=== PATIENT | male | born 1960 ===

== ENCOUNTER 2016-12-26 01:37 | Emergency (ER) | payer OTHER ==
[~2016-12-26] VITALS: Ht 180.3 cm; Wt 87.5 kg
--- NOTE | 2016-12-26 02:13 | ED GI/GU/ABDOMINAL COMPLAINT ---
History of Present Illness General Chief Complaint: Abdominal Pain/Flank Pain Stated Complaint: "PER PT ABD PAIN FOR 2HRS" Source: patient, family, old records Exam Limitations: no limitations Vital Signs & Intake/Output Vital Signs & Intake/Output Vital Signs Date Time Temp Pulse Resp B/P B/P Pulse O2 O2 Flow FiO2 Mean Ox Delivery Rate 12/26 0144 97.7 65 16 159/102 97 Room Air Room Air Allergies Coded Allergies: No Known Allergies (12/26/16) Reconcile Medications Labetalol HCl 200 MG TABLET 200 MG PO DAILY HEART (Reported) Triage Note: 56yo MALE TO TRIAGE W/CO L FLANK PAIN X 2 H. STATES IT AWOKE HIM TONITE. ALSO STATES HX OF KIDNEY STONES. Triage Nurses Notes Reviewed? yes Onset: Just prior to arrival Duration: hour(s):, constant, continues in ED, getting worse Timing: recent history Quality/Severity: sharpness, severe Location: left flank Radiation: LLQ Activities at Onset: sleep Prior Abdominal Problems: similar symptoms Past Sexual History: Unobtainable at this time No Modifying Factors: none Associated Symptoms: abdominal pain, diaphoresis, nausea/vomiting HPI: Patient with history of kidney stone was awoken with sharp severe constant left flank pain radiating to left lower quadrant associated with nausea and diaphoresis. He denies fever chills chest pain cough shortness of breath dysuria rash bleeding headache. Past History Travel History Traveled to [place] past 21 day No Medical History Any Pertinent Medical History? see below for history Renal: KIDNEY STONES Surgical History Surgical History: non-contributory Psychosocial History What is your primary language Macedonian Tobacco Use: Never used Family History Hx Contributory? No Review of Systems Review of Systems Constitutional: Reports: no symptoms. EENTM: Reports: no symptoms. Respiratory: Reports: no symptoms. Cardiovascular: Reports: no symptoms. GI: Reports: see HPI, abdominal pain, nausea. Genitourinary: Reports: see HPI, pain. Musculoskeletal: Reports: no symptoms. Skin: Reports: no symptoms. Neurological/Psychological: Reports: no symptoms. Hematologic/Endocrine: Reports: no symptoms. Immunologic/Allergic: Reports: no symptoms. All Other Systems: Reviewed and Negative Physical Exam Physical Exam General Appearance: well developed/nourished, alert, awake, anxious, moderate distress, thin Head: atraumatic, normal appearance Eyes: Bilateral: normal appearance, PERRL, EOMI, normal inspection. Ears, Nose, Throat, Mouth: hearing grossly normal, moist mucous membrane Neck: normal inspection, supple, full range of motion, normal alignment Respiratory: normal breath sounds, chest non-tender, no respiratory distress, quiet respiration, lungs clear Cardiovascular: regular rate/rhythm, normal peripheral pulses, norml femoral pulses equa Peripheral Pulses: 4+ carotid (R), 4+ carotid (L) Gastrointestinal: normal bowel sounds, soft, non-tender, no organomegaly Male Genitals: normal genitalia Back: normal inspection, normal range of motion Extremities: normal range of motion, no ligament instability Neurologic/Psych: no motor/sensory deficits, awake, alert, oriented x 3, normal gait, normal mood/affect Skin: intact, normal color, warm/dry Core Measures ACS in differential dx? No Severe Sepsis Present: No Septic Shock Present: No Progress Differential Diagnosis: diverticulitis, gastritis, ureterolithiasis, UTI/pyelo Plan of Care: Orders Procedure Date/time Status URINALYSIS 12/26 212 Complete COMPREHENSIVE METABOLIC PANEL 12/26 212 Complete CBC WITHOUT DIFFERENTIAL 12/26 212 Complete Laboratory Tests 12/26/16 0238: Urinalysis LIGHT H, Urine Color YEL, Urine Clarity CLEAR, Urine pH 7.0, Ur Specific [place] 1.020, Urine Protein TRACE H, Urine Ketones NEG, Urine Nitrite NEG, Urine Bilirubin NEG, Urine Urobilinogen 0.2, Ur Leukocyte Esterase NEG, Ur Microscopic SEDIMENT EXAMINED, Urine Bacteria RARE H, Urine Mucus RARE, Urine Hemoglobin NEG, Urine Glucose NEG 12/26/16 0225: Anion Gap 12, Estimated GFR > 60, BUN/Creatinine Ratio 15.6, Glucose 117 H, Calcium 9.5, Total Bilirubin 0.6, AST 28, ALT 44, Alkaline Phosphatase 72, Total Protein 7.9, Albumin 4.4, Globulin 3.5, Albumin/Globulin Ratio 1.3, CBC w Diff NO MAN DIFF REQ, RBC 4.71, MCV 79.7 L, MCH 26.0 L, RDW 12.9, MPV 9.7, Gran % 60.5, Lymphocytes % 29.3, Monocytes % 6.9, Eosinophils % 2.7, Basophils % 0.6, Absolute Granulocytes 4.2, Absolute Lymphocytes 2.0, Absolute Monocytes 0.5, Absolute Eosinophils 0.2, Absolute Basophils 0, PUBS MCHC 32.6 L Diagnostic Imaging: Viewed by Me: CT Scan. Discussed w/RAD: CT Scan. Radiology Impression: 1. Mild left hydroureteronephrosis, likely secondary to a 3 mm calculus in the urinary bladder near the left ureterovesicular junction. 2. Few additional tiny renal calculi bilaterally. Initial ED EKG: none Departure Departure Time of Disposition: 603 Disposition: HOME OR SELF CARE Condition: Stable Clinical Impression Primary Impression: Renal colic on left side Referrals: UNKNOWN (PCP/Family) Departure Forms: Customer Survey General Discharge Information Prescriptions: Current Visit Scripts Ibuprofen 1 TAB PO Q6PRN PRN pain #50 TAB with food Oxycodone HCl/Acetaminophen (Percocet 5-325 MG Tablet) 1 TAB PO Q6P PRN severe pain #15 TAB Critical Care Note Critical Care Note Critical Care Time: 30-74 min (40)
[2016-12-26 02:32] LABS: ABSOLUTE BASOPHIL COUNT 0 /CUMM (0.0-0.2); ABSOLUTE EOSINOPHIL COUNT 0.2 /CUMM (0.0-0.7); ABSOLUTE GRANULOCYTE CT 4.2 /CUMM (1.4-6.5); ABSOLUTE MONOCYTE COUNT 0.5 /CUMM (0.10-0.60); BASOPHIL % 0.6 % (0.0-2.0); EOSINOPHIL % 2.7 % (0-5); GRANULOCYTE % 60.5 % (42.2-75.2); HEMATOCRIT 37.5 % (42-52); MEAN CORPUSCULAR HGB CONC 32.6 G/DL (33.0-37.0); MEAN CORPUSCULAR VOLUME 79.7 FL (80.0-94.0); MEAN PLATELET VOLUME 9.7 FL (7.4-10.4); PLATELET COUNT 194 /CUMM (130-400); RBC DISTRIBUTION WIDTH 12.9 % (11.5-14.5); RED BLOOD CELL CT 4.71 /CUMM (4.70-6.10); WHITE BLOOD CELL COUNT 6.9 /CUMM (4.8-10.8)
[2016-12-26] MEDS ORDERED: LABETALOL HCL200 M1 PO (03:29)
--- NOTE | 2016-12-26 05:47 | CT SCAN REPORT ---
EXAMINATION: CT ABDOMEN AND PELVIS WITHOUT CONTRAST CLINICAL INFORMATION: Left flank pain COMPARISON: None TECHNIQUE: Multidetector volumetric imaging was performed from the superior aspect of the liver through the pubic symphysis. Sagittal and coronal reformatted images were obtained on the technologist's workstation. DLP: 595.29 mGy-cm FINDINGS: LUNG BASES: There is mild dependent atelectasis at the lung bases. LIVER, GALLBLADDER, AND BILIARY TREE: The liver is normal in size, shape, and attenuation. No focal hepatic lesion or biliary ductal dilatation is present. The gallbladder is unremarkable with no evidence of radiopaque gallstones, gallbladder wall thickening, or obvious pericholecystic inflammatory changes. PANCREAS: Unremarkable. SPLEEN: Unremarkable. ADRENAL GLANDS: Unremarkable. KIDNEYS AND URETERS: There is mild left hydroureteronephrosis, likely secondary to a 3 mm calculus in the bladder near the ureterovesicular junction. Associated left perinephric stranding is noted. There are a few tiny calculi noted in the bilateral kidneys. No right hydronephrosis or ureteral calculus. BLADDER: Mildly distended with a 3 mm calcification noted in the region just beyond the ureterovesicular junction. GASTROINTESTINAL TRACT: The small and large bowel are unremarkable. The appendix is not discretely visualized. No free fluid or free air is seen. ABDOMINAL WALL: No significant hernia is appreciated. LYMPH NODES: Normal. VASCULAR: Scattered atherosclerotic calcifications are present. PELVIC VISCERA: Unremarkable. OSSEOUS STRUCTURES: Scattered endplate osteophytes are noted in the spine. IMPRESSION: 1. Mild left hydroureteronephrosis, likely secondary to a 3 mm calculus in the urinary bladder near the left ureterovesicular junction. 2. Few additional tiny renal calculi bilaterally.
[2016-12-26] MEDS ORDERED: IBUPROFEN600 M1 PO (06:08)
[2016-12-26] MEDS ORDERED: PERCOCET 5-3251 EACH PO (06:08)
[2016-12-26 06:32] VITALS: BP 135/84
== END 2016-12-26 06:33 ==
LOC: ERH 01:37
PROVIDERS: Emergency Medicine
DX: N23 Unspecified renal colic (principal)
CPT/HCPCS: 74176; 81001; 96361; 96374; 96375; 96376; J1885; J2405; J3101